=== PATIENT | male | born 1990 | race Hispanic/Latino ===

== ENCOUNTER 2018-10-11 16:15 | Emergency (ER) | payer SELFPAY ==
[2018-10-11] MEDS ORDERED: ACETAMINOPHEN 500 MG TAB ONE (16:44)
--- NOTE | 2018-10-11 17:46 | ER ---
Nurse's Notes [facility] Name: Rubén Kearney Age: 28 yrs Sex: Male : 1990 Arrival Date: 10/11/2018 Time: 16:19 Bed 11 Private MD: Diagnosis: Influenza due to unidentified influenza virus Presentation: 10/11 16:25 Presenting complaint: Patient states: fever, body aches and headache started yesterday; hj my children were diagnosed with flu recently; took motrin yesterday; reports sore throat;l. Transition of care: patient was not received from another setting of care. Onset of symptoms was October 11, 2018. Risk Assessment: Do you want to hurt yourself or someone else? Patient reports no desire to harm self or others. Initial Sepsis Screen: Does the patient meet any 2 criteria? No. Patient's initial sepsis screen is negative. Does the patient have a suspected source of infection? No. Patient's initial sepsis screen is negative. Care prior to arrival: None. 16:25 Method Of Arrival: Ambulatory 16:25 Acuity: AQUILES 4 hj Triage Assessment: 16:27 General: Appears in no apparent distress. uncomfortable, Behavior is calm, cooperative, hj appropriate for age. Pain: Denies pain. Historical: - Allergies: 16:27 No Known Allergies; hj - Home Meds: 16:27 None [Active]; hj - PMHx: 16:27 None; hj - PSHx: 16:27 None; hj - Immunization history:: Adult Immunizations not up to date. - Social history:: Smoking status: Patient uses tobacco products, Patient/guardian denies using alcohol. - Ebola Screening: : Patient negative for fever greater than or equal to 101.5 degrees Fahrenheit, and additional compatible Ebola Virus Disease symptoms Patient denies exposure to infectious person Patient denies travel to an Ebola-affected area in the 21 days before illness onset. Screenin:27 Abuse screen: Denies threats or abuse. Denies injuries from another. Nutritional hj screening: No deficits noted. Tuberculosis screening: No symptoms or risk factors identified. Fall Risk None identified. Assessment: 16:50 General: Appears in no apparent distress. Behavior is calm, cooperative, appropriate ca1 for age. 17:08 Respiratory: Reports cough that is congestion. Airway is patent Trachea midline ca1 Respiratory effort is even, unlabored, Respiratory pattern is regular, symmetrical, Breath sounds are clear bilaterally. Derm: Skin is pink, warm \T\ dry. Musculoskeletal: Circulation, motion, and sensation intact. Capillary refill < 3 seconds. 17:29 Reassessment: Patient appears in no apparent distress at this time. Patient and/or ca1 family updated on plan of care and expected duration. Pain level reassessed. Patient is alert, oriented x 3, equal unlabored respirations, skin warm/dry/pink. Vital Signs: 16:27 BP 127 / 82; Pulse 102; Resp 18; Temp 101.1(O); Pulse Ox 98% on R/A; Weight 77.11 kg; hj Height 5 ft. 3 in. (160.02 cm); 17:29 BP 125 / 79; Pulse 105; Resp 18; Pulse Ox 100% on R/A; ca1 16:27 Body Mass Index 30.11 (77.11 kg, 160.02 cm) hj ED Course: 16:19 Patient arrived in ED. mr 16:26 Triage completed. hj 16:27 Arm band placed on left wrist. hj 16:27 Patient has correct armband on for positive identification. Bed in low position. Call hj light in reach. Side rails up X 1. Adult w/ patient. 16:47 [facility]il[facility]-C [facility]. snw 16:47 Hesham Cardoza MD is Attending Physician. snw 16:53 Salma Galarza RN is Primary Nurse. ca1 18:24 Primary Nurse role handed off by Salma Galarza RN iw 18:24 Sandy Ortiz RN is Primary Nurse. iw Administered Medications: 16:33 Drug: Tylenol 1000 mg Route: PO; hj 18:12 Drug: Zofran 4 mg Route: PO; iw 18:12 Drug: Tamiflu 75 mg Route: PO; iw Outcome: 17:46 Discharge ordered by . snw 18:24 Patient left the ED. iw Signatures: Jeri Aguilera FNP-C FNP-Álvaro Shital Menchaca Sandy Ortiz RN RN iw Damon Rossi RN RN Salma Galarza RN RN ca1 Corrections: (The following items were deleted from the chart) 16:29 16:25 Presenting complaint: Patient states: fever, body aches and headache started hj yesterday; my children were diagnosed with flu recently; took motrin yesterday; 16:30 16:27 Pulse 102bpm; Resp 18bpm; Pulse Ox 98% RA; Temp 101.1F Oral; 77.11 kg; Height 5 hj ft. 3 in.; BMI: 30.1; 17:13 16:50 General: Appears ca1 ca1
--- NOTE | 2018-10-11 17:47 | EDPHYS ---
Physician Documentation [facility] Name: Rubén Kearney Age: 28 yrs Sex: Male : 1990 Arrival Date: 10/11/2018 Time: 16:19 Bed 11 Private MD: ED Physician Hesham Cardoza HPI: 10/11 17:58 This 28 yrs old Male presents to ER via Ambulatory with complaints of Flu snw Symptoms. 17:58 Onset: The symptoms/episode began/occurred suddenly, yesterday. Associated signs and snw symptoms: Pertinent positives: cough, fever, sore throat, body aches. Modifying factors: The patient symptoms are alleviated by nothing. The patient has not experienced similar symptoms in the past, but family has similar symptoms, son. The patient has not recently seen a physician. child with influenza. Historical: - Allergies: 16:27 No Known Allergies; hj - Home Meds: 16:27 None [Active]; hj - PMHx: 16:27 None; hj - PSHx: 16:27 None; hj - Immunization history:: Adult Immunizations not up to date. - Social history:: Smoking status: Patient uses tobacco products, Patient/guardian denies using alcohol. - Ebola Screening: : Patient negative for fever greater than or equal to 101.5 degrees Fahrenheit, and additional compatible Ebola Virus Disease symptoms Patient denies exposure to infectious person Patient denies travel to an Ebola-affected area in the 21 days before illness onset. ROS: 17:57 Eyes: Negative for injury, pain, redness, and discharge. snw 17:57 Neck: Negative for injury, pain, and swelling, Cardiovascular: Negative for chest pain, palpitations, and edema. 17:57 Abdomen/GI: Negative for abdominal pain, nausea, vomiting, diarrhea, and constipation, Back: Negative for injury and pain, : Negative for injury, bleeding, discharge, and swelling, MS/Extremity: Negative for injury and deformity, Skin: Negative for injury, rash, and discoloration, Neuro: Negative for headache, weakness, numbness, tingling, and seizure. 17:57 Constitutional: Positive for body aches, chills, fatigue, fever, malaise, poor PO intake. 17:57 ENT: Positive for sore throat. 17:57 Respiratory: Positive for cough. Exam: 17:55 Head/Face: Normocephalic, atraumatic. Eyes: Pupils equal round and reactive to light, snw extra-ocular motions intact. Lids and lashes normal. Conjunctiva and sclera are non-icteric and not injected. Cornea within normal limits. Periorbital areas with no swelling, redness, or edema. ENT: Nares patent. No nasal discharge, no septal abnormalities noted. Tympanic membranes are normal and external auditory canals are clear. Oropharynx with no redness, swelling, or masses, exudates, or evidence of obstruction, uvula midline. Mucous membranes moist. Neck: Trachea midline, no thyromegaly or masses palpated, and no cervical lymphadenopathy. Supple, full range of motion without nuchal rigidity, or vertebral point tenderness. No Meningismus. Chest/axilla: Normal chest wall appearance and motion. Nontender with no deformity. No lesions are appreciated. 17:55 Abdomen/GI: Soft, non-tender, with normal bowel sounds. No distension or tympany. No guarding or rebound. No evidence of tenderness throughout. Back: No spinal tenderness. No costovertebral tenderness. Full range of motion. Skin: Warm, dry with normal turgor. Normal color with no rashes, no lesions, and no evidence of cellulitis. MS/ Extremity: Pulses equal, no cyanosis. Neurovascular intact. Full, normal range of motion. Neuro: Awake and alert, GCS 15, oriented to person, place, time, and situation. Cranial nerves II-XII grossly intact. Motor strength 5/5 in all extremities. Sensory grossly intact. Cerebellar exam normal. Normal gait. 17:55 Constitutional: The patient appears alert, awake, febrile, listless, uncomfortable. 17:55 Cardiovascular: Rate: tachycardic, Rhythm: regular, Pulses: no pulse deficits are appreciated, Edema: is not appreciated. 17:55 Respiratory: the patient does not display signs of respiratory distress, Respirations: normal, Breath sounds: are clear throughout, + cough. Vital Signs: 16:27 BP 127 / 82; Pulse 102; Resp 18; Temp 101.1(O); Pulse Ox 98% on R/A; Weight 77.11 kg; hj Height 5 ft. 3 in. (160.02 cm); 17:29 BP 125 / 79; Pulse 105; Resp 18; Pulse Ox 100% on R/A; ca1 16:27 Body Mass Index 30.11 (77.11 kg, 160.02 cm) hj MDM: 17:00 Patient medically screened. snw 17:56 Data reviewed: vital signs, nurses notes. Data interpreted: Pulse oximetry: on room air snw is 100 %. Interpretation: normal. Counseling: I had a detailed discussion with the patient and/or guardian regarding: the historical points, exam findings, and any diagnostic results supporting the discharge/admit diagnosis, lab results, the need for outpatient follow up, to return to the emergency department if symptoms worsen or persist or if there are any questions or concerns that arise at home. Special discussion: Based on the history and exam findings, there is no indication for further emergent testing or inpatient evaluation. I discussed with the patient/guardian the need to see the primary care provider for further evaluation of the symptoms. 10/11 16:29 Order name: Flu; Complete Time: 18:07 10/11 16:29 Order name: Strep; Complete Time: 18: 10/11 18:05 Order name: Throat Culture EDMS Administered Medications: 16:33 Drug: Tylenol 1000 mg Route: PO; hj 18:12 Drug: Zofran 4 mg Route: PO; iw 18:12 Drug: Tamiflu 75 mg Route: PO; iw Disposition: 10/12 12:56 Co-signature as Attending Physician, Hesham Cardoza MD I agree with the assessment and wa plan of care. Disposition: 10/11/18 17:46 Discharged to Home. Impression: Influenza due to unidentified influenza virus. - Condition is Stable. - Discharge Instructions: Fever, Adult, Influenza, Adult, Rehydration, Adult. - Prescriptions for Zofran 4 mg Oral Tablet - take 1 tablet by ORAL route every 12 hours As needed; 20 tablet. Diclofenac Sodium 75 mg Oral Tablet Sustained Release - take 1 tablet by ORAL route 2 times per day; 30 tablet. Tamiflu 75 mg Oral Capsule - take 1 tablet by ORAL route every 12 hours for 5 days; 10 tablet. - Work release form, Family Work Release, Medication Reconciliation Form, Thank You Letter, Antibiotic Education, Prescription Opioid Use form. - Follow up: Private Physician; When: 2 - 3 days; Reason: Recheck today's complaints, Continuance of care, Re-evaluation by your physician. Follow up: Emergency Department; When: As needed; Reason: Worsening of condition. Signatures: Dispatcher [employer] EDMS Willy Jeri, BAND SAWMILL OPERATOR-C BAND SAWMILL OPERATOR-Csnw Sandy Ortiz RN RN iw Joaquin, Henry, RN RN Hesham Cardoza MD MD wa Corrections: (The following items were deleted from the chart) 10/11 18:24 17:46 10/11/2018 17:46 Discharged to Home. Impression: Influenza due to unidentified iw influenza virus. Condition is Stable. Forms are Medication Reconciliation Form, Thank You Letter, Antibiotic Education, Prescription Opioid Use. Follow up: Private Physician; When: 2 - 3 days; Reason: Recheck today's complaints, Continuance of care, Re-evaluation by your physician. Follow up: Emergency Department; When: As needed; Reason: Worsening of condition. snw
[2018-10-11] MEDS ORDERED: ONDANSETRON 4 MG (ODT) TAB ONE (18:19)
[2018-10-11] MEDS ORDERED: OSELTAMIVIR 75 MG CAP ONE (18:19)
== END 2018-10-11 18:24 | disposition home or self-care (01) ==
LOC: ER 16:15
DX: J10.1 Influenza due to other identified influenza virus with other respiratory manifestations (principal); Z72.0 Tobacco use
CPT/HCPCS: 87070; 87081; 87804; 99282

== ENCOUNTER 2019-05-28 19:16 | Emergency (ER) | payer SELFPAY ==
--- NOTE | 2019-05-28 21:07 | ER ---
Nurse's Notes [facility] Name: Rubén Kearney Age: 29 yrs Sex: Male : 1990 Arrival Date: 05/28/2019 Time: 19:21 Bed 30 Private MD: Diagnosis: Periapical abscess without sinus Presentation: 05/28 19:34 Presenting complaint: Patient states: Swelling to right side of face related to bottom lp1 right teeth; States seen by dentist yesterday and prescribed Tylenol #3 and Augmentin but swelling and pain became worse today. Transition of care: patient was not received from another setting of care. Onset of symptoms was May 28, 2019. Risk Assessment: Do you want to hurt yourself or someone else? Patient reports no desire to harm self or others. Initial Sepsis Screen: Does the patient meet any 2 criteria? No. Patient's initial sepsis screen is negative. Does the patient have a suspected source of infection? No. Patient's initial sepsis screen is negative. Care prior to arrival: None. 19:34 Method Of Arrival: Ambulatory lp1 19:34 Acuity: AQUILES 3 lp1 Historical: - Allergies: 19:35 No Known Allergies; lp1 - Home Meds: 19:35 None [Active]; lp1 - PMHx: 19:35 None; lp1 - PSHx: 19:35 None; lp1 - Immunization history:: Adult Immunizations up to date. - Social history:: Smoking status: Patient uses tobacco products, smokes one pack cigarettes per day. - Ebola Screening: : No symptoms or risks identified at this time. Screenin:36 Abuse screen: Denies threats or abuse. Denies injuries from another. Nutritional lp1 screening: No deficits noted. Tuberculosis screening: No symptoms or risk factors identified. Fall Risk None identified. Assessment: 20:23 General: Appears in no apparent distress. uncomfortable, Behavior is calm, cooperative, aj1 appropriate for age. Pain: Complains of pain in right jaw Pain does not radiate. Pain currently is 10 out of 10 on a pain scale. Neuro: Level of Consciousness is awake, alert, obeys commands, Oriented to person, place, time, situation. Cardiovascular: Patient's skin is warm and dry. Respiratory: Airway is patent Respiratory effort is even, unlabored, Respiratory pattern is regular, symmetrical. GI: No signs and/or symptoms were reported involving the gastrointestinal system. : No signs and/or symptoms were reported regarding the genitourinary system. EENT: swelling noted to right side of face, reports that he saw the dentist yesterday and was prescribed pain medication and antibiotics. Derm: No signs and/or symptoms reported regarding the dermatologic system. Skin is pink, warm \T\ dry. normal. Musculoskeletal: No signs and/or symptoms reported regarding the musculoskeletal system. Circulation, motion, and sensation intact. 21:20 Reassessment: Patient appears in no apparent distress at this time. No changes from aj1 previously documented assessment. Patient and/or family updated on plan of care and expected duration. Pain level reassessed. Patient is alert, oriented x 3, equal unlabored respirations, skin warm/dry/pink. 22:23 Reassessment: Patient appears in no apparent distress at this time. No changes from aj1 previously documented assessment. Patient and/or family updated on plan of care and expected duration. Pain level reassessed. Patient is alert, oriented x 3, equal unlabored respirations, skin warm/dry/pink. 05/29 00:15 Reassessment: Patient reports that he is starting to have pain. Notified Dr. Sahu. aj1 Order for pain medication received. Vital Signs: 05/28 19:35 BP 138 / 89; Pulse 96; Resp 18; Temp 101.1(O); Pulse Ox 99% on R/A; Weight 77.11 kg lp1 (R); Height 5 ft. 3 in. (160.02 cm) (R); Pain 9/10; 22:21 BP 122 / 65; Pulse 86; Resp 18; Temp 100.0; Pulse Ox 98% on R/A; aj1 05/29 00:19 BP 139 / 79; Pulse 88; Resp 18; Pulse Ox 100% on R/A; aj1 05/28 19:35 Body Mass Index 30.11 (77.11 kg, 160.02 cm) lp1 ED Course: 05/28 19:21 Patient arrived in ED. mr 19:35 Triage completed. lp1 19:35 Arm band placed on. lp1 20:12 Flqauito Jasso MD is Attending Physician. gs 20:23 Marguerite Arrieta RN is Primary Nurse. aj1 20:30 Patient has correct armband on for positive identification. aj1 20:30 No provider procedures requiring assistance completed. aj1 22:21 CT Soft Tissue Neck W/contr In Process Unspecified. EDNE 22:37 Report given to PAULA De La Garza at [facility]. aj1 22:37 Patient transferred, IV remains in place. aj1 Administered Medications: 21:00 Drug: Tylenol 650 mg Route: PO; rv 05/29 00:20 Follow up: Response: No adverse reaction; Temperature is decreased aj1 05/28 21:00 Drug: NS 0.9% 1000 ml Route: IV; Rate: 125 ml/hr; Site: right antecubital; rv 05/29 00:21 Follow up: IV Status: Completed infusion; IV Intake: 400ml aj 05/28 21:56 Not Given (medication not available in this facility): Unasyn 3 grams IVPB once over 30 aj1 mins; (mix in 100 mL NS) 21:59 Drug: Zosyn 3.375 grams Route: IVPB; Infused Over: 60 mins; Site: right antecubital; aj1 05/29 00:21 Follow up: IV Status: Completed infusion; IV Intake: 100ml aj1 00:17 Drug: morphine 4 mg Route: IVP; Site: right antecubital; aj1 00:21 Follow up: Response: No adverse reaction; Pain is decreased; RASS: Alert and Calm (0) aj1 Intake: 00:21 IV: 400ml; Total: 400ml. aj 00:21 IV: 100ml; Total: 500ml. aj1 Outcome: 05/28 21:06 ER care complete, transfer ordered by . 05/29 00:22 Transferred by ground EMS to [facility]. aj1 Condition: stable Discharge instructions given to patient, family, Instructed on the need for transfer, Demonstrated understanding of instructions. 00:22 Patient left the ED. aj1 Signatures: Dispatcher [employer] Marguerite Montejo RN RN aj1 Shital Menchaca Laura, RN RN lp1 Flaquito Jasso MD MD gs Vicente, Ronaldo, RN RN rv Corrections: (The following items were deleted from the chart) 05/28 21: 21:00 NS 0.9% 1000 ml IV at 125 ml/hr in left hand rv rv
--- NOTE | 2019-05-28 21:08 | EDPHYS ---
Physician Documentation [facility] Name: Rubén Kearney Age: 29 yrs Sex: Male : 1990 Arrival Date: 05/28/2019 Time: 19:21 Bed 30 Private MD: ED Physician Flaquito Jasso HPI: 05/28 20:57 This 29 yrs old Male presents to ER via Ambulatory with complaints of gs Toothache. 20:57 The patient presents with swelling. The problem is located in the right jaw. Onset: The gs symptoms/episode began/occurred gradually, yesterday, and became worse and became persistent. Duration: The symptoms are continuous. Modifying factors: the symptoms are aggravated by chewing. Associated signs and symptoms: Pertinent positives: fever, swelling, Pertinent negatives: anorexia. Severity of symptoms: At their worst the symptoms were severe, in the emergency department the symptoms are unchanged. The patient has not experienced similar symptoms in the past. The patient has been recently seen by a physician: a dentist, yesterday. Historical: - Allergies: 19:35 No Known Allergies; lp1 - Home Meds: 19:35 None [Active]; lp1 - PMHx: 19:35 None; lp1 - PSHx: 19:35 None; lp1 - Immunization history:: Adult Immunizations up to date. - Social history:: Smoking status: Patient uses tobacco products, smokes one pack cigarettes per day. - Ebola Screening: : No symptoms or risks identified at this time. ROS: 20:57 All other systems are negative. gs Exam: 20:57 Head/Face: Normocephalic, atraumatic. Eyes: Pupils equal round and reactive to light, gs extra-ocular motions intact. Lids and lashes normal. Conjunctiva and sclera are non-icteric and not injected. Cornea within normal limits. Periorbital areas with no swelling, redness, or edema. Neck: Trachea midline, no thyromegaly or masses palpated, and no cervical lymphadenopathy. Supple, full range of motion without nuchal rigidity, or vertebral point tenderness. No Meningismus. Chest/axilla: Normal chest wall appearance and motion. Nontender with no deformity. No lesions are appreciated. Cardiovascular: Regular rate and rhythm with a normal S1 and S2. No gallops, murmurs, or rubs. Normal PMI, no JVD. No pulse deficits. Respiratory: Lungs have equal breath sounds bilaterally, clear to auscultation and percussion. No rales, rhonchi or wheezes noted. No increased work of breathing, no retractions or nasal flaring. Abdomen/GI: Soft, non-tender, with normal bowel sounds. No distension or tympany. No guarding or rebound. No evidence of tenderness throughout. Back: No spinal tenderness. No costovertebral tenderness. Full range of motion. Skin: Warm, dry with normal turgor. Normal color with no rashes, no lesions, and no evidence of cellulitis. MS/ Extremity: Pulses equal, no cyanosis. Neurovascular intact. Full, normal range of motion. Neuro: Awake and alert, GCS 15, oriented to person, place, time, and situation. Cranial nerves II-XII grossly intact. Motor strength 5/5 in all extremities. Sensory grossly intact. Cerebellar exam normal. Normal gait. 20:57 Constitutional: The patient appears alert, awake, uncomfortable. 20:57 Head/face: Noted is swelling, that is moderate, of the right jaw. 20:57 ENT: Dental exam: dental caries, that is severe, specifically in the lower right second molar (#31), fractured teeth are noted, gum swelling, that is severe. 20:57 ENT: MILD TRISMUS ABLE TO OPEN MOUTH FOR EXAM VOICE NL, NO STRIDOR. Vital Signs: 19:35 BP 138 / 89; Pulse 96; Resp 18; Temp 101.1(O); Pulse Ox 99% on R/A; Weight 77.11 kg lp1 (R); Height 5 ft. 3 in. (160.02 cm) (R); Pain 9/10; 22:21 BP 122 / 65; Pulse 86; Resp 18; Temp 100.0; Pulse Ox 98% on R/A; aj1 05/29 00:19 BP 139 / 79; Pulse 88; Resp 18; Pulse Ox 100% on R/A; aj1 05/28 19:35 Body Mass Index 30.11 (77.11 kg, 160.02 cm) lp1 MDM: 05/28 20:40 Patient medically screened. 20:57 Differential diagnosis: dental caries, dental abscess. Data reviewed: vital signs, gs nurses notes. Counseling: I had a detailed discussion with the patient and/or guardian regarding: the historical points, exam findings, and any diagnostic results supporting the discharge/admit diagnosis, the need to transfer to another facility. 05/28 20:45 Order name: CBC with Diff 05/28 20:45 Order name: Basic Metabolic Panel; Complete Time: 21:33 05/28 20:45 Order name: Blood Culture* 05/28 20:45 Order name: CT Soft Tissue Neck W/contr gs Administered Medications: 21:00 Drug: Tylenol 650 mg Route: PO; 05/29 00:20 Follow up: Response: No adverse reaction; Temperature is decreased [facility] 05/28 21:00 Drug: NS 0.9% 1000 ml Route: IV; Rate: 125 ml/hr; Site: right antecubital; 05/29 00:21 Follow up: IV Status: Completed infusion; IV Intake: 400ml [facility] 05/28 21:56 Not Given (medication not available in this facility): Unasyn 3 grams IVPB once over 30 aj1 mins; (mix in 100 mL NS) 21:59 Drug: Zosyn 3.375 grams Route: IVPB; Infused Over: 60 mins; Site: right antecubital; [facility] 05/29 00:21 Follow up: IV Status: Completed infusion; IV Intake: 100ml [facility] 00:17 Drug: morphine 4 mg Route: IVP; Site: right antecubital; 1 00:21 Follow up: Response: No adverse reaction; Pain is decreased; RASS: Alert and Calm (0) [facility] Disposition: 05/28/19 21:06 Transfer ordered to [facility]. Diagnosis is Periapical abscess without sinus. - Reason for transfer: Higher level of care. - Accepting physician is . - Condition is Stable. - Problem is new. - Symptoms are unchanged. Signatures: Dispatcher [employer] Marguerite Montejo RN RN aj1 Dang Crump RN RN lp1 Flaquito Jasso MD MD gs Vicente, Ronaldo RN RN rv Corrections: (The following items were deleted from the chart) 05/28 21:30 21:06 05/28/2019 21:06 Transfer ordered to [facility]. Diagnosis is Periapical gs abscess without sinus. Reason for transfer: Higher level of care. Accepting physician is [facility]. Condition is Stable. Problem is new. Symptoms are unchanged. 05/29 00:22 05/28 21:30 05/28/2019 21:06 Transfer ordered to [facility]. aj1 Diagnosis is Periapical abscess without sinus. Reason for transfer: Higher level of care. Accepting physician is . Condition is Stable. Problem is new. Symptoms are unchanged.
[2019-05-28] MEDS ORDERED: ACETAMINOPHEN 325 MG TABLET ONE (21:11)
[2019-05-28] MEDS ORDERED: NA CHLORIDE 0.9% 500 ML ONE (21:11)
[2019-05-28 21:16] LABS: Basophils % 0.4 % (0-1.3); Hematocrit 42.7 % (39.6-49.0); Lymphocytes % 15.4 % (15.3-44.8); MPV 7.7 fL (7.6-11.3); RBC Red Blood Cell Count 4.87 M/uL (4.33-5.43)
[2019-05-28 21:32] LABS: Potassium 3.6 mmol/L (3.5-5.1)
[2019-05-28] MEDS ORDERED: PIPER/TAZO/NS 3.375gm 3.375 GM/100 ML BAG ONE (21:37)
[2019-05-29] MEDS ORDERED: MORPHINE 4 MG/ML SYR ONE (00:09)
--- NOTE | 2019-05-29 11:13 | RAD REPORT ---
EXAM DESCRIPTION: Soft Tissue Neck W/Contr TECHNIQUE: Axial scans were performed through the neck including multiplanar computer reformations f ollowing intravenous contrast. Total Dose Length Product: 381. This exam was performed according to our departmental dose-optimization program, which includes autom ated exposure control, adjustment of the mA and/or kV according to patient size and/or use of iterati ve reconstruction technique. CLINICAL HISTORY: ABSCESS. Swelling to the right side of the face.Mucosal structures: Nasopharynx: Normal. Oropharynx: Normal. Larynx: Normal. Subglottic: Normal. Valleculae and pyriform sinuses: There is asymmetric aeration of the vallecula and piriform recesses probably related to secretions. No definite mass. 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 Parapharyngeal spaces: Maintained bilaterally. Vascular spaces: N ormal. Major salivary glands: The parotid glands and submandibular glands are normal. Thyroid gland: Normal. There is moderate induration, thickening and stranding in the anterior facial soft tissues pa rticularly on the right at the levels of the mandible and to some extent up to the level of the maxil la. There are multiple variably enlarged cervical nodes. There is no rim-enhancing fluid collection. There is no soft tissue emphysema. Orbits: Normal appearing globes. Incompletely imaged. No retroconal abnormality identified. Paranasal sinuses: Ethmoid sinuses are aerated. There is a 9 mm retention cyst along the floor of the right antrum. There is a 19 mm retention cyst along the floor of the left antrum. The sphenoid sinus is completely replaced with density centrally hyperattenuating. The sphenoid sinus wall is slightly thickened. The septum is deviated to the left and has a 5 mm left septal spur. Mandible and maxilla: Maxilla-there is bilateral multiple tooth destruction. With variable gas formation. With periapical l ucencies consistent with infection around multiple tooth roots. Mandible: There is bilateral multiple tooth destruction. With variable gas formation. With periapical lucencies consistent with infection around multiple tooth roots. Included upper chest: No mediastinal fluid is seen. Upper lung golden are clear without infiltrate or effusion IMPRESSION: 1. Extensive mandibular and maxillary dental disease. With multiple tooth destruction . Associated gas formation due to gas-forming pathogen. And periapical abscess formation around multipl e tooth roots. 2. Anterior facial cellulitis without evidence for a rim-enhancing drainable abscess or soft tissue e mphysema. 3. Moderate (probably reactive) cervical lymphadenopathy. 4. Chronic sphenoid sinusitis. Density changes can be seen with fungal infection. Also consider mucoc ismael and osteoma. Electronically signed by: Kishor Colbert MD 05/28/2019 10:46 PM CDT Due to temporary technical issues with the PACS/Fluency reporting system, reports are being signed by the in house radiologist as a courtesy to ensure prompt reporting. The interpreting radiologist is f ully responsible for the content of the report.
== END 2019-05-29 00:22 | disposition short-term general hospital (02) ==
LOC: ER 19:16
DX: K04.7 Periapical abscess without sinus (principal); F17.210 Nicotine dependence, cigarettes, uncomplicated
CPT/HCPCS: 36415; 70491; 80048; 85025; 87040; 96361; 96365; 96366; 96375; 99285; J2543; Q9967